=== PATIENT | male | born 1945 | race Caucasian/White ===

== ENCOUNTER → 2019-08-21 09:36 | Outpatient (CLI) | payer MEDICARE, SELFPAY ==
[2019-08-21 11:49] LABS: BUN Creatinine Ratio 18.6 (6-22); Blood Urea Nitrogen 13 mg/dL (9-20); Calcium 9.4 mg/dL (8.4-10.2); Carbon Dioxide 28 mmol/L (22-32); Chloride 104 mmol/L (98-107); Estimated Glomerular Filt Rate > 60.0 mL/min (>60); Glucose 110 mg/dL (80-110); HEMOLYSIS < 15 (0-50); Potassium 4.2 mmol/L (3.4-5.1); Sodium 141 mmol/L (137-145)
== END ==
PROVIDERS: Visit Provider Family Medicine
DX: Z00.00 Encounter for general adult medical examination without abnormal findings (principal)
CPT/HCPCS: 36415; 80048

== ENCOUNTER → 2021-06-09 15:46 | Outpatient (CLI) | payer MEDICARE, SELFPAY ==
--- NOTE | 2021-06-09 | DI.MRI.S_ITS ---
PROCEDURE: MR LUMBAR SPINE WO CON INDICATIONS: Lumbago with sciatica, left side TECHNIQUE: Noncontrast sagittal T1 spin echo and T2 fast echo, sagittal STIR, axial T1 and T2 fast spin echo through the lumbar spine. In cases with scoliosis, additional coronal T2 fast spin echo may be performed. COMPARISON: [facility], CR, XR LUMBAR SPINE 2 OR 3 VIEWS, 04/18/2021, 14:01. FINDINGS: Image quality: Excellent. Alignment and Curvature: There is mild, grade 1 retrolisthesis of L1 on L2, L2 on L3, L3 on L4, and L4 on L5. Bone Marrow: Marrow is of normal overall signal. No acute vertebral body compression fractures. The right L5-S1 pars interarticularis is hypoplastic. There is moderate reactive signal within the endplates adjacent to the L1-L2 and L4-L5 intervertebral discs. Mild reactive signal within the endplates adjacent to the T11-T12, T12-L1, L2-L3, L3-L4, and L5-S1 intervertebral discs. Spinal Cord: Conus medullaris terminates at the upper T12 level. Visualized cord demonstrates normal signal and size. Paraspinous Soft Tissues: No paravertebral masses. T12-L1: Moderate disc height loss and desiccation. Mild diffuse disc bulge. Mild facet and ligamentum flavum hypertrophy. Mild epidural lipomatosis. Mild canal stenosis. Mild bilateral foraminal stenosis. L1-L2: Moderate disc height loss and desiccation. Mild diffuse disc bulge. Mild facet and ligamentum flavum hypertrophy. Mild epidural lipomatosis. Mild canal stenosis. Mild bilateral foraminal stenosis. L2-L3: Mild disc height loss. Moderate disc desiccation. Moderate diffuse disc bulge with superimposed broad-based left far lateral protrusion. Moderate facet and ligamentum flavum hypertrophy. Mild epidural lipomatosis. Mild canal stenosis. Mild right and severe left foraminal stenosis. Left L2 nerve root compression. L3-L4: Moderate disc height loss and desiccation. Mild diffuse disc bulge. Mild bilateral facet hypertrophy and ligamentum flavum hypertrophy. Mild canal stenosis. Moderate bilateral foraminal stenosis. L4-L5: Severe disc height loss and desiccation. Moderate diffuse disc bulge/osteophyte. Moderate facet and ligamentum flavum hypertrophy. Mild canal stenosis. Moderate to severe left greater than right bilateral foraminal stenosis. Left greater than right L4 nerve root compression. L5-S1: Mild disc desiccation. Mild disc height loss. Mild bilateral facet hypertrophy. Mild canal stenosis. Moderate bilateral foraminal stenosis. IMPRESSION: 1. Multilevel degenerative disc and facet disease, as well as ligamentum flavum hypertrophy and epidural lipomatosis. 2. Mild multilevel canal stenosis. 3. Multilevel foraminal stenoses, worst at L2-L3 and L4-L5, where there is associated intraforaminal nerve root compression. Recommend correlation with clinical symptoms to ascertain relevance of these findings. Dictated by: Bentley Borjas M.D. on 06/09/2021 at 15:53 Approved by: Bentley Borjas M.D. on 06/09/2021 at 15:57
== END ==
PROVIDERS: PCP Family Medicine; Referring Provider Orthopaedic Surgery Adult Reconstructive Orthopaedic Surgery; Visit Provider Orthopaedic Surgery Adult Reconstructive Orthopaedic Surgery
DX: M51.16 Intervertebral disc disorders with radiculopathy, lumbar region (principal); M48.061 Spinal stenosis, lumbar region without neurogenic claudication; M48.07 Spinal stenosis, lumbosacral region; E88.2 Lipomatosis, not elsewhere classified
CPT/HCPCS: 72148

== ENCOUNTER → 2024-01-09 15:51 | Outpatient (CLI) | payer MEDICARE, SELFPAY ==
--- NOTE | 2024-01-09 15:53 | DI.RAD.S_ITS ---
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 COMPARISON: None. FINDINGS: Surgical changes and devices: None. Bones and chest wall: No fractures or dislocations. No suspicious bony lesions. Overlying soft tissues appear unremarkable. Lungs and pleura: No pleural effusions or pneumothorax. Lungs appear clear. Mediastinum: Mediastinal contours appear normal. Heart size is normal. IMPRESSION: No displaced rib fracture or pneumothorax. Dictated by: Anthony De Santiago M.D. on 01/09/2024 at 17:14 Approved by: Anthony De Santiago M.D. on 01/09/2024 at 17:15
== END ==
LOC: RAD 15:52
PROVIDERS: PCP Family Medicine; Referring Provider Nurse Practitioner Family; Visit Provider Nurse Practitioner Family
DX: R07.81 Pleurodynia (principal)
CPT/HCPCS: 71101

== ENCOUNTER → 2024-02-05 08:20 | Outpatient (CLI) | payer MEDICARE, SELFPAY ==
[2024-02-05 09:27] LABS: Add Manual Diff / Slide Review NO; Basophils Absolute Auto 0 /uL (0-100); Basophils Percent Auto 0.6 % (0-2); Eosinophils Absolute Auto 200 /uL (0-450); Eosinophils Percent Auto 4.2 % (2-4); Hematocrit 45.3 % (41-53); Hemoglobin 15.7 g/dL (13.5-17.5); Lymphocytes Absolute Auto 1600 /uL (1100-4500); Lymphocytes Percent Auto 35.1 % (25-40); Mean Corpuscular HGB Conc 34.6 % (30-36); Mean Corpuscular Volume 98.1 fL (80-100); Monocytes Absolute Auto 400 /uL (0-900); Monocytes Percent Auto 8.5 % (3-14); Neutrophils Absolute Auto 2400 /uL (1500-7000); Neutrophils Percent Auto 51.6 % (50-75); Platelet Count 175 X10^3/uL (150-400); Red Blood Cell Count 4.62 X10^6/uL (4.5-5.9); Red Cell Distribution Width 12.8 % (11.6-14.8); White Blood Cell Count 4.7 X10^3/uL (4.5-11.0)
[2024-02-05 10:00] LABS: Alanine Aminotransferase 44 IU/L (<50); Albumin 4.4 g/dL (3.5-5.0); Albumin Globulin Ratio 1.6 (1.0-2.8); Alkaline Phosphatase 87 U/L (38-126); Aspartate Aminotransferase 41 IU/L (17-59); Bilirubin Total 1.3 mg/dL (0.2-1.3); Blood Urea Nitrogen 17 mg/dL (9-20); Calcium 9.2 mg/dL (8.4-10.2); Carbon Dioxide 27 mmol/L (22-32); Chloride 107 mmol/L (98-107); Cholesterol 135 mg/dL (140-199); Estimated Glomerular Filt Rate > 60 mL/min (>60); Globulin 2.8 g/dL (1.7-4.1); Glucose 102 mg/dL (80-110); HDL Cholesterol 45 mg/dL (40-60); HEMOLYSIS < 15 (0-50); LDL Cholesterol Calculated 65 mg/dL (<100); Potassium 4.1 mmol/L (3.4-5.1); Sodium 138 mmol/L (137-145); Total Protein 7.2 g/dL (6.3-8.2); Triglycerides 127 mg/dL (35-150)
== END ==
PROVIDERS: PCP Family Medicine; Referring Provider Family Medicine; Visit Provider Family Medicine
DX: Z00.00 Encounter for general adult medical examination without abnormal findings (principal); E78.5 Hyperlipidemia, unspecified; I10 Essential (primary) hypertension; Z76.89 Persons encountering health services in other specified circumstances
CPT/HCPCS: 36415; 80053; 80061; 85025

== ENCOUNTER 2025-06-15 20:22 | Emergency (ER) | payer MEDICARE, SELFPAY ==
[2025-06-15 20:37] VITALS: BP 179/86; PULSE 94; RESP 16; TEMP 37.7; O2SAT 98; BMI 29.2
[2025-06-15 21:12] LABS: Appearance Urine UA SL CLOUDY; Bilirubin Urine UA NEGATIVE (NEGATIVE); Color Urine UA ORANGE; Glucose Urine UA NEGATIVE (Negative); Ketones Urine UA NEGATIVE (NEGATIVE); Leukocyte Esterase Urine UA 2+ (NEGATIVE); Nitrite Urine UA POSITIVE (Negative); Occult Blood Urine UA 3+ (Negative); Protein Urine UA 1+ (Negative); Specific Gravity Urine UA 1.010 (1.000-1.035); Urobilinogen Urine UA 1.0 E.U./dL (0.2); pH Urine UA 6.0 (4.5-8.0)
[2025-06-15 21:20] LABS: Culture Indicated Urine Specimen Cultured
[2025-06-15 21:29] LABS: Add Manual Diff / Slide Review NO; Hematocrit 43.7 % (41-53); Hemoglobin 15.2 g/dL (13.5-17.5); Lymphocytes Absolute Auto 800 /uL (1100-4500); Mean Corpuscular HGB Conc 34.7 % (30-36); Mean Corpuscular Hemoglobin 33.9 PG (26-34); Mean Corpuscular Volume 97.7 fL (80-100); Platelet Count 141 X10^3/uL (150-400)
[2025-06-15 21:43] LABS: Alanine Aminotransferase 23 IU/L (<50); Albumin 4.4 g/dL (3.5-5.0); Albumin Globulin Ratio 1.4 (1.0-2.8); Alkaline Phosphatase 86 U/L (38-126); Blood Urea Nitrogen 15 mg/dL (9-20); Calcium 8.8 mg/dL (8.4-10.2); Carbon Dioxide 24 mmol/L (22-32); Chloride 103 mmol/L (98-107); Estimated Glomerular Filt Rate > 60 mL/min (>60); Globulin 3.1 g/dL (1.7-4.1); Glucose 119 mg/dL (70-99); HEMOLYSIS 17 (0-50); Potassium 3.9 mmol/L (3.4-5.1); Sodium 135 mmol/L (137-145); Total Protein 7.5 g/dL (6.3-8.2)
[2025-06-15 21:44] LABS: Lactate (Lactic Acid) 1.0 mmol/L (0.7-2.1)
[2025-06-15 23:54] VITALS: BP 198/91; PULSE 94; O2SAT 96
[2025-06-16] VITALS: PULSE 90; O2SAT 95
[2025-06-16] MEDS: CEFDINIR 300 MG CAPSULE PO (00:03)
[2025-06-16 00:05] VITALS: TEMP 38.7
--- NOTE | 2025-06-16 00:11 | ED_ITS ---
HPI - General Adult General Chief complaint: Urogenital-Male Stated complaint: high fever off and on Time Seen by Provider: 06/15/25 22:25 Source: patient and family Mode of arrival: Ambulatory History of Present Illness HPI narrative: 80-year-old male with history of bladder cancer, subsequent strictures and difficult cystoscopies surveillance procedures, previous experience with nitrous oxide was not helpful, oral sedation given for recent cystoscopy that was performed by [place] urologist on , awaiting follow up CT scan next week. Feeling feverish today. Concern for development of urine infection. No abdominal pain. No flank area back pain. No cough or shortness of breath. Related Data Home Medications ?Medication ?Instructions ?Recorded ?Confirmed clobetasol 0.05 % scalp solution ml topical 08/12/23 0 01/09/24 Previous Rx's ?Medication ?Instructions ?Recorded amlodipine 5 mg tablet 5 mg PO DAILY #90 tabs 05/27 ramipril 10 mg capsule 10 mg PO DAILY #90 caps 05/11 06/04 sildenafil 50 mg tablet 25 mg (1/2 x 50 mg) PO DAILY PRN 05/27/25 intercourse #45 tabs simvastatin 20 mg tablet 20 mg PO ONCE PM #90 tabs tamsulosin 0.4 mg capsule 0.4 mg PO QAM #90 caps 05/27 ciprofloxacin HCl 500 mg tablet 500 mg PO BID 10 days #20 tabs 06/16/25 Allergies Allergy/AdvReac Type Severity Reaction Status Date / Time Penicillins Allergy Intermediate Swelling, Verified 06/15/25 20:36 Itching Patient History Medical History (Updated 06/16/25 @ 00:51 by Andrea Woodruff MD) Eczema (~1997) Allergies (~1954) Neuropathy (~2008) Chronic back pain (~2019) Mumps (~1955) Measles (~1953) Chicken pox (~1951) Tinnitus (~1966) Hearing loss (~1966) Kidney stones (~2016) Bladder cancer (~2008) HLD (hyperlipidemia) HTN (hypertension) (~1990) Surgical History (Updated 01/27/24 @ 21:05 by Estefany Jeffries) Anesthesia S/P epidural steroid injection (~2020) History of bladder surgery Family History (Updated 01/27/24 @ 21:06 by Estefany Jeffries) Father ALS (amyotrophic lateral sclerosis) Brother Hypertension Social History Smoking Status: Never smoker Smoking Status: Never smoker Exam Narrative Exam Narrative: GENERAL: Well-developed patient, in mild distress. HEAD: Atraumatic. Normocephalic. EYES: Pupils equal round and reactive. Extraocular motions intact. No scleral icterus. No injection or drainage. ENT: Nose without bleeding, purulent drainage. Throat without erythema, tonsillar hypertrophy or exudate. Airway patent. NECK: Trachea midline. Non tender CARDIOVASCULAR: Regular rate and rhythm without murmurs, gallops, or rubs. RESPIRATORY: Clear to auscultation. Breath sounds equal bilaterally. No wheezes, rales, or rhonchi. GASTROINTESTINAL: Abdomen soft, non-tender, nondistended. EXTREMITIES: No edema or joint tenderness. BACK: Nontender without deformity or crepitance. No flank tenderness. NEURO: AOx3. Motor functions grossly nonfocal. SKIN: No rash or erythema of visible areas Initial Vital Signs Initial Vital Signs: Vital Signs Temperature 99.9 F H 06/15/25 20:37 Pulse Rate 94 H 06/15/25 20:37 Respiratory Rate 16 06/15/25 20:37 Blood Pressure 179/86 H 06/15/25 20:37 Pulse Oximetry 98 06/15/25 20:37 Oxygen Delivery Method Room Air 06/15/25 20:37 Course Orders Ordered: ED Orders 06/15/25 20:45 Urinalysis and Microscopic Stat Urine Culture Stat 06/15/25 21:20 Complete Blood Count AUTO DIFF Stat Comprehensive Metabolic Panel Stat Lactate (Lactic Acid) Stat Discontinued Medications Acetaminophen (Acetaminophen 325 Mg Tablet) 650 mg PO NOW ONE Stop: 06/16/25 00:08 Last Admin: 06/16/25 00:14 Dose: 650 mg Documented By: LEVI Cefdinir (Cefdinir 300 Mg Capsule) 300 mg PO NOW ONE Stop: 06/15/25 22:27 Last Admin: 06/16/25 00:03 Dose: 300 mg Documented By: LEVI Vital Signs Vital signs: Vital Signs - 8 hr 06/15/25 20:37 06/15/25 23:54 06/15/25 23:54 Temperature 99.9 F H Pulse Rate 94 H 94 H Respiratory Rate 16 Blood Pressure 179/86 H 198/91 H Pulse Oximetry 98 96 Oxygen Delivery Method Room Air 06/16/25 00:00 06/16/25 00:05 06/16/25 00:30 Temperature 101.7 F H Pulse Rate 90 71 Respiratory Rate Blood Pressure Pulse Oximetry 95 95 Oxygen Delivery Method 06/16/25 00:31 06/16/25 00:31 Temperature Pulse Rate 73 Respiratory Rate 17 Blood Pressure 151/73 H Pulse Oximetry 95 Oxygen Delivery Method Room Air Medical Decision Making Lab Data Lab results reviewed: Yes I reviewed the patient's lab results. Lab results narrative: White blood cell count 8300, hemoglobin 15.2, platelets adequate. Glucose 119. Normal renal function. Normal serum CO2 24, electrolytes unremarkable. Liver functions normal. Urinalysis shows inflammatory cells and pyuria, suspicious for infection, urine culture was triggered by protocol. 06/15/25 21:20 06/15/25 21:20 Labs: Lab Results 06/15/25 06/15/25 Range/Units 20:45 21:20 WBC 8.3 (4.5-11.0) X10^3/uL RBC 4.47 L (4.5-5.9) X10^6/uL Hgb 15.2 (13.5-17.5) g/dL Hct 43.7 (41-53) % MCV 97.7 (80-100) fL MCH 33.9 (26-34) PG MCHC 34.7 (30-36) % RDW 12.8 (11.6-14.8) % Plt Count 141 L (150-400) X10^3/uL Neut % (Auto) 80.2 H (50-75) % Lymph % (Auto) 9.4 L (25-40) % [place] % (Auto) 9.7 (3-14) % Eos % (Auto) 0.3 L (2-4) % Baso % (Auto) 0.4 (0-2) % Neut # (Auto) 6700 (2670-1588) /uL Lymph # (Auto) 800 L (5139-9959) /uL [place] # (Auto) 800 (0-900) /uL Eos # (Auto) 0 (0-450) /uL Baso # (Auto) 0 (0-100) /uL Sodium 135 L (137-145) mmol/L Potassium 3.9 (3.4-5.1) mmol/L Chloride 103 (98-107) mmol/L Carbon Dioxide 24 (22-32) mmol/L BUN 15 (9-20) mg/dL Creatinine 0.80 (0.66-1.25) mg/dL Estimated GFR > 60 (>60) mL/min BUN/Creatinine Ratio 18.8 (6-22) Glucose 119 H (70-99) mg/dL Lactate 1.0 (0.7-2.1) mmol/L Calcium 8.8 (8.4-10.2) mg/dL Total Bilirubin 0.9 (0.2-1.3) mg/dL AST 25 (17-59) IU/L ALT 23 (<50) IU/L Alkaline Phosphatase 86 (38-126) U/L Total Protein 7.5 (6.3-8.2) g/dL Albumin 4.4 (3.5-5.0) g/dL Globulin 3.1 (1.7-4.1) g/dL Albumin/Globulin Ratio 1.4 (1.0-2.8) Urine Color [place] Urine Appearance Sl cloudy Urine pH 6.0 (4.5-8.0) Ur Specific [place] 1.010 (1.000-1.035) Urine Protein 1+ H (Negative) Urine Glucose (UA) Negative (Negative) g/dL Urine Ketones Negative (NEGATIVE) Urine Occult Blood 3+ H (Negative) Urine Nitrate Positive H (Negative) Urine Bilirubin Negative (NEGATIVE) Urine Urobilinogen 1.0 (0.2) E.U./dL Ur Leukocyte Esterase 2+ H (NEGATIVE) Urine RBC 1-5/hpf (0-5/HPF) Urine WBC 10-30/hpf H (0-5/HPF) Ur Squamous Epith Cells 0-1 /hpf (0-5/HPF) Urine Bacteria Moderate (10-30) H (None) Ur Culture Indicated? Specimen cultured Vol Urine Centrifuged 10ml (spun) MDM Narrative Medical decision making narrative: 80-year-old male with history of bladder cancer, recent surveillance cystoscopy, now feels feverish. Afebrile, sirs screen negative. Urinalysis pending, along with serum studies. Lab data: White blood cell count 8300, hemoglobin 15.2, platelets adequate. Glucose 119. Normal renal function. Normal serum CO2 24, electrolytes unremarkable. Liver functions normal. Urinalysis shows inflammatory cells and pyuria, suspicious for infection, urine culture was triggered by protocol. UTI suspected. Initial cefdinir dose given, patient subsequently reported he had penicillin room with remote itchy rash, unclear if he takes cephalexin in the past. We will avoid further cephalosporin for now although lower risk drug allergy with 3rd generation cephalosporin penicillin. We will discharge on further antibiotics ciprofloxacin, to avoid all beta-lactam/cephalosporin for now. Prescription for ciprofloxacin sent to his pharmacy. Advised to contact his urologists during regular hours tomorrow. Return precautions discussed. Discharged home with family. Discharge Plan Departure Patient Disposition: Home Clinical Impression: Urinary tract infection Instructions: DI for Urinary Tract Infection (UTI) Activity Restrictions/Additional Instructions: History of bladder cancer with surveillance cystoscopy recent in [place] by your urologists, after oral sedation tablets, tolerated well. Feeling feverish today. Abdomen benign on exam without tenderness. White blood cell count normal. Urinalysis suspicious for infection. Oral antibiotic cefdinir given, prescription for further antibiotics sent to your pharmacy. We did discuss advanced abdominopelvic imaging tonight, but held for now given your lack of tenderness on examination of your abdomen and pelvis and also your inflammatory markers were not elevated at this time. Take antibiotics as directed. Drink plenty of fluids. Take Tylenol and or Motrin as needed for fever control. Contact the office of your urologist tomorrow during regular hours, to see if follow up plan post cystoscopy is any different. Return earlier to this/nearest emergency department for any change worsening symptoms or any concerns prior. History of penicillin allergy, less likely to have this reaction with 3rd generation cephalosporin such as cefdinir, however just in case that is possible, further antibiotics we will be in avoidance of cephalosporins for now. We will prescribe in its place ciprofloxacin antibiotic, 1 tablet twice daily for 10 day supply. Recheck symptoms with your regular doctor in the next couple of days. Follow up with your urologist as outlined above. Take antibiotics as directed. Prescriptions: New ciprofloxacin HCl 500 mg tablet 500 mg PO BID 10 Days Qty: 20 0RF No Action clobetasol 0.05 % solution topical amlodipine 5 mg tablet 5 mg PO DAILY Qty: 90 0RF ramipril 10 mg capsule 10 mg PO DAILY Qty: 90 0RF sildenafil 50 mg tablet 25 mg PO DAILY PRN (Reason: intercourse) Qty: 45 1RF simvastatin 20 mg tablet 20 mg PO ONCE PM Qty: 90 0RF tamsulosin 0.4 mg capsule 0.4 mg PO QAM Qty: 90 0RF Referrals: Svetlana Thomas DO [Primary Care Provider, Family Practice] Stand Alone Forms: Patient Portal/API
[2025-06-16] MEDS: ACETAMINOPHEN 325 MG TABLET 650 MG PO (00:14)
[2025-06-16 00:30] VITALS: PULSE 71; O2SAT 95
[2025-06-16 00:31] VITALS: BP 151/73; PULSE 73; RESP 17; O2SAT 95
== END 2025-06-16 01:12 | disposition home or self-care (01) ==
PROVIDERS: Emergency Provider Emergency Medicine; PCP Family Medicine
DX: N39.0 Urinary tract infection, site not specified (principal); Z85.51 Personal history of malignant neoplasm of bladder
CPT/HCPCS: 36415; 80053; 81001; 83605; 85025; 87077; 87086; 99283